=== PATIENT | male | born 1955 | race Hispanic/Latino ===

== ENCOUNTER → 2017-12-27 | Outpatient (CLI) | payer OTHER ==
--- NOTE | 2017-12-27 10:10 | Diagnostic Imaging Report ---
PROCEDURE:X-RAY ABDOMEN - [facility] COMPARISON:None. INDICATIONS:KIDNEY STONES FINDINGS: No suspicious calcifications project over the renal shadows or expected ureteral courses. Bowel gas pattern is nonobstructive. No mass effect or organomegaly. Regional skeletal structures are intact with mild degenerative disc changes of the lumbar spine. Calcified granuloma in the right lung base. CONCLUSION: No plain film evidence of urolithiasis. Dictated by: Paul Mcgarry M.D. on 12/27/2017 at 10:14 Electronically approved by: Paul Mcgarry M.D. on 12/27/2017 at 10:14
== END ==
LOC: RAD 09:03
PROVIDERS: ATTEND Urology
DX: N20.1 Calculus of ureter (principal)
CPT/HCPCS: 74018

== ENCOUNTER → 2018-11-11 | Outpatient (CLI) | payer MEDICARE ==
--- NOTE | 2018-11-11 16:13 | Diagnostic Imaging Report ---
Exam: Abdominal film Clinical History: Renal stones Comparison: 12/27/2017 DISCUSSION: No suspicious calcifications project over the renal shadows, expected ureteral courses, or urinary bladder. Bowel gas pattern is nonobstructive. Regional skeletal structures are intact. No mass effect or organomegaly. IMPRESSION: No plain film evidence of urolithiasis. Signed by: Dr. Paul Mcgarry M.D. on 11/11/2018 4:10 PM
== END ==
LOC: RAD 15:25
PROVIDERS: ATTEND Urology
DX: N20.0 Calculus of kidney (principal)
CPT/HCPCS: 74018

== ENCOUNTER 2019-02-26 01:28 | Emergency (ER) | payer OTHER ==
[~2019-02-26] VITALS: Ht 167.6 cm; Wt 77.1 kg
--- NOTE | 2019-02-26 01:30 | NUR ---
bladder scan performed per md request. scan performed x3. scan results 45-75cc. md informed.
--- OUTSIDE RECORDS SUMMARY | 2019-02-26 01:30 | XMS REPORT | Clinical Summary ---
Author Author [facility] Address Unknown Phone Unavailable Care Team Providers Care Pbx Manager Name Role Phone Ray Amanda MD PCP Allergies No Known Allergies Medications End Date Status Medication Sig Dispensed Refills Start Date Active simvastatin (ZOCOR) 20 MG Take 20 mg by 0 tablet mouth nightly. Active Problems Not on file Social History Date Tobacco Use Types Packs/Day Years Used Never Smoker Smokeless Tobacco: Never Used Sex Assigned at Date Recorded Not on file Industry Job Start Date Occupation Not on file Not on file Not on file Travel End Travel History Travel Start No recent travel history available. Last Filed Vital Signs Not on file Plan of Treatment Not on file Results Not on fileafter 02/25/2018 Insurance Payer Benefit Subscriber ID Type Phone Address Plan / Group [employer] (Home) [place] [address]
--- OUTSIDE RECORDS SUMMARY | 2019-02-26 01:30 | XMS REPORT ---
Author Author [facility] Address Unknown Phone Unavailable Care Team Providers Care Supervisor [place] Name Role Phone NALDO CAMPBELL Unavailable Unavailable SUGAR FRAUSTO Unavailable Unavailable Problems This patient has no known problems. Allergies, Adverse Reactions, Alerts This patient has no known allergies or adverse reactions. Medications This patient has no known medications. Results Test Description Test Time Test Comments Text Results Atomic Results Result Comments ABDOMEN-1VIEW ([facility]) 2018-11-11 16:08:00 [place] [address] Patient Name: ISIS YOUNG MR #: [id number] : 1955 Age/Sex: 63/M Req #: [id number] Adm Physician: Ordered by: NALDO CAMPBELL MD Report #: [id number] Location: [facility] Room/Bed: Procedure: [id number] DX/ABDOMEN-1VIEW ([facility]) Exam Date: Exam Time: REPORT STATUS: Signed Exam: Abdominal film Clinical History: Renal stones C omparison: 12/27/2017 DISCUSSION: No suspicious calcifications project over the renal shadows, expected ureteral courses, or urinary bladder. Bowel gas pattern is nonobstructive. Regional skeletal structures are intact. No mass effect or organomegaly. IMPRESSION: No plain film evidence of urolithiasis. Signed by: Dr. Al Yap M.D. on 11/11/2018 4:10 PM Dictated By: AL YAP MD 1610 Transcribed By: CATE on 11/11/18 1610 COPY TO: NALDO CAMPBELL MD ABDOMEN-1VIEW ([facility]) 2017-12-27 10:14:00 [place] [address] Patient Name: ISIS YOUNG JR MR #: [id number] : 1955 Age/Sex: 62/M Req #: [id number] Adm Physician: Ordered by: NALDO CAMPBELL MD Report #: [id number] Location: [facility] Room/Bed: Procedure: [id number] DX/ABDOMEN-1VIEW ([facility]) Exam Date: 12/27/17 Exam Time: 0915 REPORT STATUS: Signed PROCEDURE: X-RAY ABDOMEN - [facility] COMPARISON: None. INDICATIONS: KIDNEY STONES FINDINGS: No suspicious calcifications project over the renal shadows or expected ureteral courses. Bowel gas pattern is nonobstructive. No mass effect or organomegaly. Regional skeletal structures are intact with mild degenerative disc changes of the lumbar spine. Calcified granuloma in the right lung base. CONCLUSION: No plain film evidence of urolithiasis. Dictated by: Al Yap M.D. on 12/27/2017 at 10:14 Electronically approved by: Al Yap M.D. on 12/27/2017 at 10:14 Dictated By: AL YAP MD 1014 Transcribed By: NADINE on 12/27/17 1014 COPY TO: NALDO CAMPBELL MD CT, ABDOMEN 2017-12-17 03:43:00 FINAL REPORT CLINICAL HISTORY: Acute abdominal pain, flank pain FINDINGS: Multiple axial images of the abdomen and pelvis were performed without intravenous contrast. Oral contra st was not given. This exam was performed according to our departmental dose- optimization program, which includes automated exposure control, adjustment of the mA and/or kV according to patient size and/or use of the iterative reconstruction technique. Comparison:None. Lower chest: Left hemidiaphragm is elevated. Curvilinear opacity in the left lung base suggests atelectasis or scarring. No pleural effusion or pneumothorax. Visualized cardiac contours normal. Liver: No significant findings. Gallbladder and biliary tree: No significant findings. Spleen: No significant findings. Adrenal Glands: No sig nificant findings. Kidneys and ureters: Mild left renal collecting system prominence and left-sided perinephric fat stranding. A 2 mm stone is present in the left ureteral orifice with the bladder or in the dependent bladder lumen. Stomach and Duodenum: No significant findings. Pancreas: No significant findings. Bowel: No significant findings. Appendix: Normal. Bladder: Punctate stone in the left posterior bladder, either within the left ureteral orifice or in the dependent bladder Major vascular structures: No significant findings. Reproductive organs: No significant findings. Other: No free air, fluid or adenopathy Skeleton: No acute bony abnormality. IMPRESSION: Mild left renal collecting system prominence and perinephric fat stranding related to a 2 mm stone in the dependent left bladder, either recently passed or within the left ureteral orifice. Signed: Pam Lraios MDReport Verified Date/Time: 12/17/2017 03:43:58 Reading Location: [address] Reading Room [facility] signed by: PAM LARIOS M.D. on 12/17/2017 03:43 AM CBC W/PLT COUNT & AUTO DIFFERENTIAL 2017-12-17 03:04:00 WHITE BLOOD CELL COUNT (BEAKER) (test dshf=200) 11.1 10e3/i? L 4.0-10.0 RED BLOOD CELL COUNT (BEAKER) (test gobm=882) 5.20 10e6/i? L 4.20-5.80 HEMOGLOBIN (BEAKER) (test jkxy=022) 15.6 g/dL 13.0-16.8 HEMATOCRIT (BEAKER) (test ljmx=323) 46.5 % 40.0-50.0 MEAN CORPUSCULAR VOLUME (BEAKER) (test dpbr=087) 89.5 fL 82.0-98.0 MEAN CORPUSCULAR HEMOGLOBIN (BEAKER) (test gbad=144) 30.1 pg 27.0-33.0 MEAN CORPUSCULAR HEMOGLOBIN CONC (BEAKER) (test ulhe=776) 33.6 g/dL 32.0-36.0 RED CELL DISTRIBUTION WIDTH (BEAKER) (test dzzm=773) 14.1 % 10.3-14.2 PLATELET COUNT (BEAKER) (test ucrl=707) 239 10e3/i? L 150-430 MEAN PLATELET VOLUME (BEAKER) (test tbln=906) 7.6 fL 6.5-10.5 NEUTROPHILS RELATIVE PERCENT (BEAKER) (test qepi=525) 70 % LYMPHOCYTES RELATIVE PERCENT (BEAKER) (test siny=351) 19 % MONOCYTES RELATIVE PERCENT (BEAKER) (test lqgp=992) 7 % EOSINOPHILS RELATIVE PERCENT (BEAKER) (test kuwh=590) 3 % BASOPHILS RELATIVE PERCENT (BEAKER) (test gaok=142) 2 % NEUTROPHILS ABSOLUTE COUNT (BEAKER) (test ukrn=293) 7.78 10e3/i? L 1.80-8.00 LYMPHOCYTES ABSOLUTE COUNT (BEAKER) (test ghqb=083) 2.05 10e3/i? L 1.48-4.50 MONOCYTES ABSOLUTE COUNT (BEAKER) (test xali=298) 0.81 10e3/i? L 0.00-1.30 EOSINOPHILS ABSOLUTE COUNT (BEAKER) (test vzoq=395) 0.28 10e3/i? L 0.00-0.50 BASOPHILS ABSOLUTE COUNT (BEAKER) (test axqa=174) 0.18 10e3/i? L 0.00-0.20 URINALYSIS W/ REFLEX URINE [id number] 03:02:00* Test Item Value Reference Range Comments COLOR (BEAKER) (test fphs=633) Yellow CLARITY (BEAKER) (test wmdy=995) Hazy SPECIFIC GRAVITY UA (BEAKER) (test agrs=359) 1.025 1.001-1.035 PH UA (BEAKER) (test qnov=063) 5.0 5.0-8.0 PROTEIN UA (BEAKER) (test yxpl=414) Trace Negative GLUCOSE UA (BEAKER) (test axml=184) Negative Negative KETONES UA (BEAKER) (test mqsc=793) Negative Negative BILIRUBIN UA (BEAKER) (test wwiu=275) Negative Negative BLOOD UA (BEAKER) (test ozea=001) Moderate Negative NITRITE UA (BEAKER) (test qcpg=410) Negative Negative LEUKOCYTE ESTERASE UA (BEAKER) (test agyu=930) Negative Negative UROBILINOGEN UA (BEAKER) (test rtlx=539) 0.2 mg/dL 0.2-1.0 URIC ACID CRYSTALS (BEAKER) (test ixiy=1531) Many RBC UA-MANUAL (BEAKER) (test gcho=6009) <5 /HPF WBC UA-MANUAL (BEAKER) (test umem=0264) None Seen /HPF SOURCE(BEAKER) (test mars=7294) BASIC METABOLIC [id number] 03:01:00* Test Item Value Reference Range Comments SODIUM (BEAKER) (test zonh=678) 136 meq/L 135-148 POTASSIUM (BEAKER) (test xpum=096) 4.4 meq/L 3.6-5.5 CHLORIDE (BEAKER) (test zfyl=584) 101 meq/L 98-106 CO2 (BEAKER) (test zpct=424) 23 meq/L 24-32 BLOOD UREA NITROGEN (BEAKER) (test chyn=312) 20 mg/dL 10-26 CREATININE (BEAKER) (test jrov=318) 0.95 mg/dL 0.50-1.20 GLUCOSE RANDOM (BEAKER) (test nttj=946) 144 mg/dL 70-110 CALCIUM (BEAKER) (test rhhv=148) 8.7 mg/dL 8.5-10.5 EGFR (BEAKER) (test pkte=7286) mL/min/1.73 sq m INSUFFICIENT CLINICAL DATA TO CALCULATE ESTIMATED GFR.
[2019-02-26] MEDS ORDERED: KETOROLAC TROMETHAMINE 30 MG/ML VIAL IM STA (01:32)
[2019-02-26] MEDS ORDERED: KETOROLAC TROMETHAMINE 60 MG/2 ML VIAL ONE (01:42)
[2019-02-26 02:02] LABS: BILIRUBIN,URINE NEGATIVE (NEGATIVE); CLARITY,URINE CLEAR (CLEAR); COLOR,URINE YELLOW (YELLOW); KETONES,URINE NEGATIVE (NEGATIVE); LEUKOCYTE ESTERASE ,URINE NEGATIVE (NEGATIVE); NITRITE,URINE NEGATIVE (NEGATIVE); PROTEIN,URINE DIPSTICK NEGATIVE (NEGATIVE); URINE UROBILINOGEN 0.2 mg/dL (0.2 - 1)
--- NOTE | 2019-02-26 02:15 | Diagnostic Imaging Report ---
EXAMINATION: CT of the abdomen and pelvis without contrast. TECHNIQUE: Spiral CT images of the abdomen and pelvis were performed from the lung bases to the lesser trochanters. No intravenous contrast was given per renal stone protocol. Coronal and sagittal reformatted images were obtained. COMPARISON: KUB 11/11/2018 CLINICAL HISTORY:Suprapubic pain DISCUSSION: ABSENCE OF INTRAVENOUS CONTRAST DECREASES SENSITIVITY FOR DETECTION OF FOCAL LESIONS AND VASCULAR PATHOLOGY. ABDOMEN/PELVIS: LOWER THORAX: Groundglass and reticular opacities in the dependent lower lobes compatible with subsegmental atelectasis. Similar opacities in the right middle lobe and lingula. HEPATOBILIARY:Calcified granuloma segment 2. Otherwise no focal hepatic lesion. No intrahepatic biliary dilatation. Gallbladder is unremarkable. SPLEEN: No splenomegaly. PANCREAS: No focal masses or ductal dilatation. ADRENALS: No adrenal nodules. KIDNEYS/URETERS: Punctate calcification at the left ureterovesical junction (series 3 image 160) results in pelviectasis and mild ureteral fullness without discrete hydronephrosis. Mild left perinephric fat stranding. No additional calculi within the upper collecting systems, ureters, or urinary bladder. No focal renal lesion. PELVIC ORGANS/BLADDER: Urinary bladder is poorly distended and incompletely evaluated. Prostate and seminal vesicles appear normal. PERITONEUM/RETROPERITONEUM: No ascites. No pneumoperitoneum. LYMPH NODES: No pelvic sidewall, retroperitoneal, or mesenteric lymphadenopathy. VESSELS: Limited evaluation without intravenous contrast. Mild atherosclerotic calcification of the right common iliac artery. No abdominal aortic aneurysm. GI TRACT: No gross distention or wall thickening. The descending and sigmoid colon is collapsed and poorly evaluated. The appendix is not definitively identified. No right lower quadrant inflammation. No small bowel dilatation to suggest obstruction. BONES AND SOFT TISSUES: Bone island right side of the symphysis pubis. Multilevel degenerative disc changes and facet arthropathy of the lumbar spine. No focal soft tissue abnormalities. IMPRESSION: Punctate left ureterovesical junction calculus results in perinephric inflammation and trace pelviectasis without overt hydronephrosis. Signed by: Dr. Paul Mcgarry M.D. on 02/26/2019 2:12 AM
[2019-02-26 02:16] LABS: BACTERIA,URINE FEW /HPF; EPITHELIAL CELLS,URINE RARE /LPF; RBC,URINE 21-50 /HPF (0-5); WBC,URINE (MAN) 0-5 /HPF (0-5)
[2019-02-26 02:17] LABS: MUCUS,URINE MANY (RARE)
--- NOTE | 2019-02-26 02:32 | NUR ---
urine strainer provided. pt isntructed to strain all urine and take any stones to dr harley office.
== END 2019-02-26 02:37 | disposition home or self-care (01) ==
LOC: ER 01:28
DX: N20.1 Calculus of ureter (principal)
CPT/HCPCS: 74176; 81001; 96372; 99283; J1885

== ENCOUNTER 2019-04-06 18:09 | Emergency (ER) | payer OTHER ==
[~2019-04-06] VITALS: Ht 167.6 cm; Wt 77.1 kg
[2019-04-06 19:34] LABS: CLARITY,URINE CLEAR (CLEAR); COLOR,URINE YELLOW (YELLOW); LEUKOCYTE ESTERASE ,URINE NEGATIVE (NEGATIVE); NITRITE,URINE NEGATIVE (NEGATIVE); PROTEIN,URINE DIPSTICK NEGATIVE (NEGATIVE)
[2019-04-06 19:35] LABS: BILIRUBIN,URINE NEGATIVE (NEGATIVE); KETONES,URINE NEGATIVE (NEGATIVE); URINE UROBILINOGEN 0.2 mg/dL (0.2 - 1)
[2019-04-06 19:44] LABS: RBC,URINE 0-5 /HPF (0-5)
[2019-04-06] MEDS ORDERED: KETOROLAC TROMETHAMINE 60 MG/2 ML VIAL IM ONE (20:15)
--- NOTE | 2019-04-06 21:52 | Diagnostic Imaging Report ---
EXAM: CT Abdomen and Pelvis WITHOUT contrast INDICATION: Flank pain. Kidney stone. Hematuria. COMPARISON: [address] 03/2019. TECHNIQUE: Abdomen and pelvis were scanned utilizing a multidetector helical scanner from the lung base to the pubic symphysis without administration of IV contrast. Absence of intravenous contrast decreases sensitivity for detection of focal lesions and vascular pathology. Coronal and sagittal reformations were obtained. Renal protocol was performed. IV CONTRAST: None. ORAL CONTRAST: Water RADIATION DOSE: Total DLP: 445.21 mGy*cm Estimated effective dose: (DLP x 0.015 x size factor) mSv COMPLICATIONS: None FINDINGS: LINES and TUBES: None. LOWER THORAX: There is bibasilar atelectasis. HEPATOBILIARY: No focal hepatic lesions. No biliary ductal dilation. GALLBLADDER: No radio-opaque stones or sludge. No wall thickening. SPLEEN: No splenomegaly. PANCREAS: No focal masses or ductal dilatation. ADRENALS: No adrenal nodules KIDNEYS/URETERS: 1.0 cm calculus either at the left UVJ or just distal to it, resulting in mild to moderate left hydroureteronephrosis. Marked left perinephric stranding and small volume of free fluid secondary to hydrostatic pressure. No additional renal calculi. No right-sided hydronephrosis. No suspicious masses. . GI TRACT: No abnormal distention, wall thickening, or evidence of bowel obstruction. Appendix is normal. PELVIC ORGANS/BLADDER: Unremarkable. LYMPH NODES: No lymphadenopathy. VESSELS: There is mild atherosclerotic disease in the aorta and major arterial branches. PERITONEUM / RETROPERITONEUM: No free air or fluid. BONES: There are degenerative changes in the lumbar spine. SOFT TISSUES: Unremarkable. IMPRESSION: 1. 1.0 cm calculus either at the left UVJ or just distal to it, resulting in mild to moderate left hydroureteronephrosis Signed by: Dr. Jasper Alvarado M.D. on 04/06/2019 9:49 PM
[2019-04-06 22:20] VITALS: BP 138/77
== END 2019-04-06 22:26 | disposition home or self-care (01) ==
LOC: ER 18:09
DX: R30.0 Dysuria (principal); R31.9 Hematuria, unspecified; N20.0 Calculus of kidney
CPT/HCPCS: 74176; 81001; 99283; J1885

== ENCOUNTER 2021-05-28 20:13 | Inpatient (IN) | payer MEDICARE, OTHER ==
[~2021-05-28] VITALS: Ht 170.2 cm; Wt 77.1 kg
[2021-05-28] MEDS ORDERED: SODIUM CHLORIDE 0.9% 1000ML 1,000 ML IV STA (20:26)
[2021-05-28 20:48] LABS: BASOPHILS # (AUTO) 0.1 (0.0-0.1); BASOPHILS % 0.4 % (0.0-1.0); EOSINOPHILS % 0.2 % (0.0-6.0); HEMATOCRIT 44.9 % (38.2-49.6); HEMOGLOBIN 15.8 g/dL (14.0-18.0); LYMPHOCYTES # (AUTO) 1.7 (1.0-3.2); LYMPHOCYTES % 13.5 % (18.0-39.1); MEAN CORPUSCULAR HEMOGLOBIN 30.5 pg (28-32); MEAN CORPUSCULAR HGB CONC 35.2 g/dL (31-35); MEAN CORPUSCULAR VOLUME 86.7 fL (81-99); MONOCYTES # (AUTO) 0.6 (0.2-0.8); NEUTROPHILS # (AUTO) 9.9 (2.1-6.9); NEUTROPHILS % 79.9 % (38.7-80.0); PLATELET COUNT 219 x10e3/uL (140-360); RED BLOOD COUNT 5.18 x10e6/uL (4.3-5.7); RED CELL DISTRIBUTION WIDTH 12.5 % (11.7-14.4)
[2021-05-28 21:01] LABS: CLARITY,URINE CLEAR (CLEAR); COLOR,URINE YELLOW (YELLOW); LEUKOCYTE ESTERASE ,URINE NEGATIVE (NEGATIVE); NITRITE,URINE NEGATIVE (NEGATIVE); PROTEIN,URINE DIPSTICK NEGATIVE (NEGATIVE)
[2021-05-28 21:02] LABS: BACTERIA,URINE FEW /HPF; KETONES,URINE TRACE (NEGATIVE); MUCUS,URINE FEW (RARE); URINE UROBILINOGEN 0.2 mg/dL (0.2 - 1)
[2021-05-28 21:06] LABS: ALBUMIN 4.5 g/dL (3.5-5.0); ALBUMIN/GLOBULIN RATIO 1.6 (0.8-2.0); CALCIUM 8.5 mg/dL (8.4-10.2)
[2021-05-28] MEDS ORDERED: KETOROLAC TROMETHAMINE 30 MG/ML VIAL IV STA (21:23)
[2021-05-28] MEDS ORDERED: ONDANSETRON HCL INJ 2MG/ML 2ML 2 MG/ML VIAL IV PRN (22:00)
[2021-05-28 23:58] VITALS: BP 147/85
[2021-05-29 00:54] VITALS: BP 147/85
[2021-05-29] MEDS ORDERED: SIMVASTATIN20 MG PO (02:04)
[2021-05-29] MEDS ORDERED: FLOMAX0.4 MG PO (02:04)
[2021-05-29 04:00] VITALS: BP 135/80
[2021-05-29 05:29] LABS: ANION GAP 13.7 mmol/L (8-16); CALCIUM 7.9 mg/dL (8.4-10.2); CREATININE, SERUM 0.85 mg/dL (0.72-1.25); POTASSIUM 3.7 mmol/L (3.5-5.1)
[2021-05-29 07:51] VITALS: BP 146/81
[2021-05-29] MEDS ORDERED: FUROSEMIDE INJ 10 MG/ML 4 ML VIAL ONE (10:55)
[2021-05-29 11:54] VITALS: BP 138/77
[2021-05-29] MEDS: Morphine 4mg Syringe 4 MG/ML INJ IV PRN ×2 (13:03→20:01)
[2021-05-29 16:07] VITALS: BP 155/90
[2021-05-29] MEDS: CEFTRIAXONE 1 GM in SODIUM CHLORIDE 0.9% 50ML 50 ML IV SCH (17:40)
[2021-05-29 20:00] VITALS: BP 162/85
[2021-05-29] MEDS ORDERED: TAMSULOSIN HCL 0.4 MG CAP PO SCH (21:00)
[2021-05-29] MEDS ORDERED: SIMVASTATIN 20 MG TAB PO SCH (21:00)
[2021-05-30] VITALS: BP 154/87
[2021-05-30 04:00] VITALS: BP 130/74
[2021-05-30] MEDS ORDERED: CEFTRIAXONE 1 GM VIAL ONE (04:02)
[2021-05-30] MEDS: CEFTRIAXONE 1 GM in SODIUM CHLORIDE 0.9% 50ML 50 ML IV SCH ×2 (05:54→17:43)
[2021-05-30 07:54] VITALS: BP 124/77
[2021-05-30 12:19] VITALS: BP 127/76
[2021-05-30 15:40] VITALS: BP 118/78
[2021-05-30] MEDS ORDERED: LEVOFLOXACIN250 MG PO (16:21)
[2021-05-30 20:00] VITALS: BP 120/62
== END 2021-05-30 18:35 | disposition home or self-care (01) | DRG 694 ==
LOC: ER 20:22 → ERHOLD 21:51 → MED/SURG2 23:51
PROVIDERS: ADMIT Internal Medicine; ATTEND Internal Medicine
DX: N13.0 Hydronephrosis with ureteropelvic junction obstruction (principal); E78.5 Hyperlipidemia, unspecified; Z87.442 Personal history of urinary calculi; N28.89 Other specified disorders of kidney and ureter; N40.1 Benign prostatic hyperplasia with lower urinary tract symptoms; Z20.822 Contact with and (suspected) exposure to COVID-19
CPT/HCPCS: 36415; 74176; 78708; 80048; 80053; 81001; 85025; 99284; A9562; J0696; J1885; J1940; J2270; J2405; J7030; U0002

== ENCOUNTER → 2021-06-19 | Outpatient (CLI) | payer MEDICARE ==
[2021-06-16 10:08] LABS: HEMOGLOBIN 16.5 g/dL (14.0-18.0)
[2021-06-16 10:31] LABS: INR 0.88; PROTHROMBIN TIME 12.6 seconds (11.9-14.5)
[2021-06-16 10:32] LABS: PARTIAL THROMBOPLASTIN TIME 29.8 seconds (23.8-35.5)
[~2021-06-19] MED LIST: CEFTRIAXONE 1 GM VIAL ONE; FENTANYL CITRATE/PF 100MCG/2 ML INJ ONE; FLOMAX0.4 MG PO; IOPAMIDOL 300MG/ML 100 ML INFUS..BTL IV ONE; LEVOFLOXACIN250 MG PO; LIDOCAINE HCL 1% LOCAL INJ 20 ML VIAL ONE; MIDAZOLAM HCL 2 MG/2 ML VIAL ONE; SIMVASTATIN20 MG PO; SODIUM CHLORIDE 0.9% 250ML 250 ML ONE; SODIUM CHLORIDE 0.9% 50ML 50 ML ONE
== END ==
LOC: DX 09:47
PROVIDERS: ATTEND Urology
DX: N13.30 Unspecified hydronephrosis (principal); Z20.822 Contact with and (suspected) exposure to COVID-19
CPT/HCPCS: 36415; 74425; 76942; 85014; 85049; 85610; 85730; C1769; J0696; J2250; J3010; J7050; U0002; 99152; 99153; J2001; Q9967

== ENCOUNTER → 2022-04-27 | Day surgery (SDC) | payer MEDICARE ==
[2022-04-25 11:04] LABS: BASOPHILS % 0.5 % (0.0-1.0); EOSINOPHILS # (AUTO) 0.1 (0.0-0.4); EOSINOPHILS % 0.7 % (0.0-6.0); HEMATOCRIT 48.3 % (38.2-49.6); HEMOGLOBIN 16.7 g/dL (14.0-18.0); LYMPHOCYTES # (AUTO) 1.7 (1.0-3.2); LYMPHOCYTES % 22.1 % (18.0-39.1); MEAN CORPUSCULAR HEMOGLOBIN 30.4 pg (28-32); MEAN CORPUSCULAR HGB CONC 34.6 g/dL (31-35); MEAN CORPUSCULAR VOLUME 87.8 fL (81-99); MONOCYTES # (AUTO) 0.5 (0.2-0.8); MONOCYTES % 6.9 % (4.4-11.3); NEUTROPHILS # (AUTO) 5.2 (2.1-6.9); PLATELET COUNT 205 x10e3/uL (140-360); RED CELL DISTRIBUTION WIDTH 12.9 % (11.7-14.4)
[2022-04-25 11:15] LABS: ALBUMIN 4.3 g/dL (3.5-5.0); ALBUMIN/GLOBULIN RATIO 1.5 (0.8-2.0); CALCIUM 9.2 mg/dL (8.4-10.2)
[~2022-04-27] MED LIST changes: +BUPIVACAINE 0.25% 30ML SDV ONE; +BUPIVACAINE 0.5%/EPI 30 ML SDV INJ ONE; -CEFTRIAXONE 1 GM VIAL ONE; +EPHEDRINE SULFATE INJ 50 MG/ML VIAL IV ONE; -FENTANYL CITRATE/PF 100MCG/2 ML INJ ONE; +FINASTERIDE5 MG PO; -IOPAMIDOL 300MG/ML 100 ML INFUS..BTL IV ONE; -LIDOCAINE HCL 1% LOCAL INJ 20 ML VIAL ONE; +LIDOCAINE HCL 2% LOCAL INJ 5 ML SDV VIAL INJ ONE; -MIDAZOLAM HCL 2 MG/2 ML VIAL ONE; +ONDANSETRON HCL INJ 2MG/ML 2ML 2 MG/ML VIAL IV ONE; +POVIDONE IODINE 0.05% 0.05 % ML PO ONE; +PROPOFOL IV EMULSION 10 MG/ML 20 ML VIAL IV ONE; +SEVOFLURANE INHAL SOLN 250 ML PEN BTL INH ONE; -SODIUM CHLORIDE 0.9% 250ML 250 ML ONE; -SODIUM CHLORIDE 0.9% 50ML 50 ML ONE; +SUCCINYLCHOLINE CHLORIDE 20 MG/ML 10ML VIAL IV ONE
[2022-04-27 11:25] VITALS: BP 141/82
== END | disposition home or self-care (01) ==
LOC: OR 06:39
PROVIDERS: ATTEND Surgery
DX: R22.2 Localized swelling, mass and lump, trunk (principal); N40.0 Benign prostatic hyperplasia without lower urinary tract symptoms; E78.6 Lipoprotein deficiency; Z01.810 Encounter for preprocedural cardiovascular examination; Z01.812 Encounter for preprocedural laboratory examination; Z01.818 Encounter for other preprocedural examination; Z79.899 Other long term (current) drug therapy
CPT/HCPCS: 21936; 36415; 71046; 80053; 85025; 88304; 93005; J0330; J0690; J2001; J2405; J2704; 88312